=== PATIENT | male | born 1985 | race Caucasian/White ===

== ENCOUNTER 2022-07-23 18:14 | Emergency (ER) | payer BC ==
[2022-07-23] MEDS ORDERED: Sodium Chloride 0.9% 2.5 ML Syringe FLUSH PRN (18:51)
[2022-07-23] MEDS ORDERED: Sodium Chloride 0.9% 10 ML Syringe FLUSH PRN (18:51)
[2022-07-23 19:45] LABS: CARBON DIOXIDE,CO2 26.7 mmol/L (21.0-32.0); POTASSIUM,K 3.8 mmol/L (3.5-5.1)
[2022-07-23 19:57] LABS: CORONAVIRUS COVID-19 NAA NEGATIVE (NEGATIVE); INFLUENZA A NAA NEGATIVE (NEGATIVE); INFLUENZA B NAA NEGATIVE (NEGATIVE)
== END 2022-07-23 20:49 | disposition home or self-care (01) ==
LOC: MW.ED 18:14
DX: R07.89 Other chest pain (principal); R42 Dizziness and giddiness; Z20.822 Contact with and (suspected) exposure to COVID-19
CPT/HCPCS: 0240U; 36415; 71045; 80053; 81003; 83735; 84484; 85025; 85610; 93005; 99285; J3490

== ENCOUNTER 2024-01-06 09:56 | Day surgery (SDC) | payer BC ==
[2024-01-06] MEDS: Lactated Ringers 1,000 ML IV SCH (10:21)
[2024-01-06] MEDS ORDERED: propofoL 50 ML ONE ×2 (11:09→11:25)
== END 2024-01-06 12:26 | disposition home or self-care (01) ==
LOC: MW.SDS 09:56
PROVIDERS: ATTEND Surgery
DX: K59.00 Constipation, unspecified (principal); I10 Essential (primary) hypertension; F41.9 Anxiety disorder, unspecified; F31.9 Bipolar disorder, unspecified; E66.01 Morbid (severe) obesity due to excess calories; Z68.43 Body mass index [BMI] 50.0-59.9, adult; Z87.891 Personal history of nicotine dependence; Z79.899 Other long term (current) drug therapy
CPT/HCPCS: 45380; J2704; J7120; 00811